=== PATIENT | male | born 1990 | race Caucasian/White ===

== ENCOUNTER 2018-03-25 20:15 | Emergency (ER) | payer SELFPAY ==
[2018-03-25 20:37] VITALS: BP 137/78
--- NOTE | 2018-03-25 21:26 | UC ---
Skin Complaint HPI - HPI Summary HPI Summary: HAD A PLANTAR WART EXCISED IN THE [facility] 2 MONTHS AGO. HAS HAD WORSENING PAIN WHEN WEIGHT BEARING. NO FEVER OR DRAINAGE. - History of Current Complaint Chief Complaint: UCLowerExtremity Time Seen by Provider: 03/25/18 21:10 Stated Complaint: WOUND RECHECK Hx Obtained From: Patient Onset/Duration: Gradual Onset, Lasting Weeks, Still Present Timing: Constant Onset Severity: Moderate Current Severity: Moderate Pain Intensity: 6 Pain Scale Used: 0-10 Numeric Location: Foot (Left) Character: Pain Aggravating Factor(s): Other - PRESSURE Alleviating Factor(s): Nothing Associated Signs & Symptoms: Positive: Tenderness - Allergy/Home Medications Allergies/Adverse Reactions: Allergies Allergy/AdvReac Type Severity Reaction Status Date / Time No Known Allergies Allergy Verified 03/25/18 20:37 Home Medications: Home Medications NK [No Home Medications Reported] 03/25/18 [History Confirmed 03/25/18] Review of Systems Constitutional: Negative Skin: Other - TENDER SCAR LEFT FOOT Respiratory: Negative Cardiovascular: Negative Gastrointestinal: Negative All Other Systems Reviewed And Are Negative: Yes PMH/Surg Hx/FS Hx/Imm Hx Previously Healthy: Yes - Surgical History Surgical History: Yes Surgery Procedure, Year, and Place: left foot wart - Family History Known Family History: Negative: Hypertension - Social History Alcohol Use: Occasionally Substance Use Type: None Smoking Status (MU): Heavy Every Day Tobacco Smoker Physical Exam Triage Information Reviewed: Yes Appearance: Well-Appearing, No Pain Distress, Well-Nourished Vital Signs: Initial Vital Signs Temp 98.6 F 03/25/18 20:34 Pulse 60 03/25/18 20:34 Resp 18 03/25/18 20:34 BP 137/78 03/25/18 20:34 Pulse Ox 98 03/25/18 20:34 Vital Signs Reviewed: Yes Eyes: Positive: Conjunctiva Clear ENT: Positive: Hearing grossly normal Neck: Positive: Supple Respiratory: Positive: No respiratory distress, No accessory muscle use Cardiovascular: Positive: Pulses Normal Abdomen Description: Positive: Soft Musculoskeletal: Positive: No Edema Neurological: Positive: Alert Psychological: Positive: Age Appropriate Behavior Skin: Positive: Other - CALLOUSED SCAR PLANTAR SURFACE LEFT FOOT 1ST METATARSAL HEAD WITH MULTIPLE WARTS SURROUNDING IT. TTP. Course/Dx - Course Course Of Treatment: PATIENT HAS A CLUSTER OF WARTS ON THE BOTTOM OF HIS LEFT FOOT SURROUNDING THE SCAR FROM HIS PREVIOUS WART EXCISION. HE IS CONCERNED ABOUT DEVELOPING INFECTION HE WILL BE DOING A LOT OF TRAVELING AND WALKING OVER THE NEXT FEW WEEKS BEFORE HE RETURNS TO THE [facility]. I HAVE COUNSELED HIM ON THE SIGNS AND SYMPTOMS OF SKIN INFECTION AND HAVE SENT A PRESCRIPTION FOR KEFLEX 500 MG 2 CAPS TWICE DAILY FOR 7 DAYS TO A PHARMACY IN [place] WHERE HE WILL BE TOMORROW. - Diagnoses Provider Diagnoses: PLANTAR WARTS - LEFT FOOT Discharge - Sign-Out/Discharge Documenting (check all that apply): Patient Departure All imaging exams completed and their final reports reviewed: No Studies - Discharge Plan Condition: Stable Disposition: HOME Patient Education Materials: Plantar Wart (ED) Referrals: No Primary Care Phys,NOPCP [Primary Care Provider] - Additional Instructions: THERE IS NO SIGN OF INFECTION ON EXAM TODAY BUT YOU DO HAVE A CLUSTER OF WARTS SURROUNDING THE SCAR. GIVEN YOUR UPCOMING INTENSE TRAVEL SCHEDULE AND HOW MUCH YOU'LL BE WALKING WILL SEND IN A PRESCRIPTION FOR KEFLEX 500 MG 2 CAPS TWICE DAILY FOR 7 DAYS TO COVER FOR INFECTION IF NEEDED. SIGNS OF INFECTION INCLUDE SPREADING REDNESS OF THE SKIN, PURULENT DRAINAGE, INCREASED PAIN, FEVER. FOLLOW -UP WITH A DAIRY FARMWORKER WHEN YOU GET BACK HOME TO THE [facility]. - Billing Disposition and Condition Condition: STABLE Disposition: Home
== END 2018-03-25 21:35 | disposition home or self-care (01) ==
LOC: UCEAST 20:15
DX: B07.0 Plantar wart (principal); F17.200 Nicotine dependence, unspecified, uncomplicated
CPT/HCPCS: 99201; G0463